=== PATIENT | male | born 1955 | race Caucasian/White ===

== ENCOUNTER 2017-01-09 09:58 | Inpatient (IN) ==
--- NOTE | 2017-01-09 10:30 | EKG Report ---
Test Performed on : 01/09/2017 10:05:12 AM Test Reason : CHEST PAIN Blood Pressure : / mmHG Vent. Rate : 083 BPM Atrial Rate : 083 BPM P-R Int : 162 ms QRS Dur : 106 ms QT Int : 390 ms P-R-T Axes : 017 -33 149 degrees QTc Int : 458 ms Sinus rhythm. with premature atrial complexes. Left axis deviation Septal infarct , age undetermined ST \T\ T wave abnormality, consider lateral ischemia Abnormal ECG No previous ECGs available Unconfirmed Result
[2017-01-09 10:31] LABS: MANUAL DIFF NEEDED? NO
[2017-01-09 10:35] LABS: BASO% 0.9 % (0.0-0.8); EOS# 0.12 X1000 (0.0-0.7); EOS% 2.1 % (0.0-10.0); HEMATOCRIT 38.6 % (42.0-52.0); HEMOGLOBIN 13.9 g/dL (14.0-18.0); LYMPH# 2.01 X1000 (1.2-3.4); LYMPH% 34.7 % (20.5-51.1); MCH 32.3 PG (27-31); MCV 89.6 FL (81-99); MONO# 0.51 X1000 (0.11-0.59); MONO% 8.8 % (1.7-9.3); MPV 11.7 FL (7.4-10.4); NEUT% 53.5 % (42.2-75.2); PLT 171 X1000 (130-400); RBC 4.31 XMIL (4.7-6.1)
--- NOTE | 2017-01-09 10:40 | Diag Imaging Result Doc PS360 ---
EXAM: CHEST-2 VIEWS HISTORY: CP TECHNIQUE: PA and lateral chest COMMENT: There is no evidence of acute cardiac or pulmonary disease. Compared to 09/28/2015 there is been no significant change in the appearance of the chest. IMPRESSION: No acute disease. Electronically signed by Taran Pham 01/09/2017 10:38 AM
[2017-01-09 11:04] LABS: ALBUMIN 3.8 g/dL (3.5-5.0); CALCIUM 8.7 mg/dL (8.8-10.2); MAGNESIUM 1.8 mg/dL (1.5-2.7); POTASSIUM 4.4 mmol/L (3.5-5.1); TOTAL BILIRUBIN 0.37 mg/dL (0.20-1.00); TOTAL PROTEIN 7.2 g/dL (6.3-8.3)
[2017-01-09 11:07] LABS: INR 0.97; PROTIME 10.2 Seconds (9.2-11.7); PTT 26.3 Seconds (22.0-36.0)
--- NOTE | 2017-01-09 11:53 | ED EKG INTERP ---
This chart was entered by Dory Blunt Scribe, acting as scribe for Meg Peña MD. EKG Interpretation - EKG Time of EKG reading by physician:: 10:05 EKG Read and Signed by:: Meg Peña EKG Interpretation (*Must complete 3 of following elements*): Abnormal Rate: 83 Rhythm: sinus rhythm with premature atrial complexes [place]: left (left axis deviation) ST Wave: non-specific ST changes (ST & T wave abnormality, consider lateral ischemia) Comments: septal infarct, age undetermined Attestation - Physician/ STEPHEN Attestation Patient care was provided by Advanced Practice Provider:: Yes Advanced Practice Provider documentation review:: The Mid-level provider documentation, treatment plan and medical decision making was reviewed by the physician who agrees with all treatment and medical decision making by the MLP. The physician spent face to face time with patient:: No Advanced Practice Provider documentation review:: Supervising physician onsite and consulted in the evaluation and care of this patient. The physician did not have a face to face encounter with the patient. This chart was documented by the indicated scribe, (Dory Blunt Scribe) and accurately reflects the services I performed and decisions made by me, Meg Peña MD, as attested by the provider's signature.
--- NOTE | 2017-01-09 12:06 | PROVIDER DOCUMENTATION ---
This chart was entered by Dory Blunt Scribe, acting as scribe for Fátima Mendoza CRNP. HPI-Chest Pain - General Chief Complaint: Chest Pain Stated Complaint: CP Time Seen by Provider: 01/09/17 11:18 Source: patient Allergies/Adverse Reactions: Patient Allergies Allergy/AdvReac Type Severity Reaction Status Date / Time No Known Allergies Allergy Verified 09/28/15 08:11 Home Medications: Home Medication List Medication Instructions Recorded Confirmed Last Taken Type Aspirin [Aspirin EC] 81 mg PO DAILY 08/09/14 01/09/17 01/09/17 08:00 History Lisinopril 40 mg PO DAILY 08/09/14 01/09/17 01/09/17 08:00 History Amlodipine [Norvasc] 10 mg PO QAM 09/28/15 01/09/17 01/09/17 08:00 History Metformin [Glucophage] 1,000 mg PO BID 09/28/15 01/09/17 01/09/17 08:00 History Clopidogrel [Plavix] 75 mg PO DAILY #60 tablet 09/29/15 01/09/17 01/09/17 08:00 Rx Fenofibrate [Tricor] 145 mg PO DAILY #60 tablet 09/29/15 01/09/17 01/08/17 20: 00 Rx ATORVAstatin [Lipitor] 40 mg PO HS 01/09/17 01/09/17 01/08/17 20:00 History - History of Present Illness-CP Nature of Presenting Problem: Patient is a 61 year old male who presents in the ED with complaints of chest pain. Patient states he was at his PCP's office in [place], [place] when he had a sudden sharp/stabbing sensation in his right chest, and states his pain radiated into his right shoulder. He also states he elected to come to the ED via private vehicle, and states he "felt like he had to keep taking deep breaths." He reports he took three 81mg aspirin prior to arrival in ED, and reports he has a history of chest pain and elevated troponins in the ED but has not been evaluated by a nut culler in the past. He also reports he has been told he has aortic valve issues but again has not been evaluated by a nut culler to confirm this. 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 Location: reports: other (right sided) Chest Pain Radiation: reports: shoulders (right) Quality of Pain: reports: sharp, stabbing Severity in ED: mild, moderate Onset/Duration: abrupt, 1-3 hours ago Timing: gone now Context/Activities at Onset: reports: moderate activity (at PCP's office) Modifying Factors: improves with: nothing Associated Symptoms: reports: shortness of breath ("had to take deep breaths") Nitro Today/Relief: no nitro taken today Aspirin Treatment Today: 81 mg x 3, provided at home Prior Chest Pain/Cardiac Workup: reports: other (hx of chest pain/elevated troponins) Similar Symptoms Previously?: Yes Recently Seen Here or By Another Healthcare Provider: No Review of Systems - Adult - REVIEW OF SYSTEMS - ADULT Constitutional: reports: no symptoms reported Eyes: reports: no symptoms reported Ears, Nose, Mouth & Throat: reports: no symptoms reported Cardiovascular: reports: see HPI, chest pain Respiratory: reports: see HPI, shortness of breath ("have to take deep breaths") Gastrointestinal: reports: no symptoms reported Genitourinary: reports: no symptoms reported Musculoskeletal: reports: no symptoms reported Integumentary: reports: no symptoms reported Neurological: reports: no symptoms reported Psychiatric: reports: no symptoms reported Endocrine: reports: no symptoms reported Hematologic/Lymphatic: reports: no symptoms reported Allergic/Immunologic: reports: no symptoms reported All Other Systems: Reviewed and Negative Past History - Adult - PAST MEDICAL HISTORY-ADULT Review of Records: reports: Nursing Assessment Review, Medications Reviewed Major Childhood Illnesses: reports: denies history Cardiovascular: reports: HTN, hyperlipidemia Respiratory: reports: denies history Gastrointestinal: reports: denies history Obstetrical/Gynecological: reports: denies history Genitourinary: reports: denies history Musculoskeletal: reports: denies history Neurological: reports: CVA (x2 with mild residual left sided weakness) Psychiatric: reports: denies history Endocrine/Immune: reports: denies history, Diabetes Other Conditions: reports: denies history - PRIOR SURGERIES/PROCEDURES Surgical/Procedure History: reports: none - IMMUNIZATION STATUS Childhood Immunizations: See Nurse Assessment Flu Vaccine: See Nurse Assessment - FAMILY HISTORY Family History: reviewed, not pertinent - SOCIAL HISTORY Smoking: denies, non-smoker Substance Use: none/never Alcohol Use Frequency: never Living Situation: family Physical Exam-General - PHYSICAL EXAM-ADULT Initial Vital Signs Reviewed: Yes - CONSTITUTIONAL General Appearance: alert, no apparent distress - EYES Eyes: PERRL/EOMI, pink conjunctivae - HEAD, EARS, NOSE, MOUTH & THROAT HENMT: normocephalic/atraumatic, moist mucous membranes - NECK Neck: full range of motion, supple - RESPIRATORY Respiratory: chest non-tender, lungs clear, normal breath sounds, no pleuratic chest pain, no respiratory distress, no accessory muscle use - CARDIOVASCULAR Cardiovascular: normal peripheral pulses, regular rate, rhythm, no edema, no gallop, no JVD, gallop/S3 (prominent) - GASTROINTESTINAL (ABDOMEN) Abdominal Exam: non tender, soft, no organomegaly, no pulsatile mass - LYMPHATIC Lymphatic: no adenopathy - MUSCULOSKELETAL Back Exam: normal inspection, no CVA tenderness, no vertebral tenderness Extremity: normal range of motion, non-tender, normal gait, normal inspection, no pedal edema, no calf tenderness, normal capillary refill, pelvis stable - SKIN Integumentary: normal color, normal turgor, warm/dry - NEUROLOGIC Neurologic: grossly normal, no motor/sensory deficits - PSYCHIATRIC Psych/Mental Status: normal mood/affect, oriented x 3 Progress - PLAN OF CARE/RESULTS Progress/Plan/Lab Results: Vital Signs - 8 hr 01/09/17 10:01 Temperature 98.3 F Pulse Rate 80 Respiratory Rate 18 Blood Pressure 168/73 O2 Sat by Pulse Oximetry 97 Laboratory Results - last 24 hr 01/09/17 01/09/17 01/09/17 10:12 10:12 10:12 WBC 5.80 RBC 4.31 L Hgb 13.9 L Hct 38.6 L MCV 89.6 MCH 32.3 H MCHC 36.0 RDW Std Deviation 12.5 Plt Count 171 MPV 11.7 H Immature Gran % (Auto) 0.0 Neut % (Auto) 53.5 Lymph % (Auto) 34.7 [place] % (Auto) 8.8 Eos % (Auto) 2.1 Baso % (Auto) 0.9 H Immature Gran # (Auto) 0.00 Neut # (Auto) 3.11 Lymph # (Auto) 2.01 [place] # (Auto) 0.51 Eos # (Auto) 0.12 Baso # (Auto) 0.05 PT INR PTT (Actin FS) D-Dimer 0.24 Sodium 131 L Potassium 4.4 Chloride 96 L Carbon Dioxide 22 L Anion Gap 13 BUN 27 H Creatinine 1.8 H Estimated GFR/1.73 m2 38 BUN/Creatinine Ratio 15 Glucose 197 H Calculated Osmolality 273 Calcium 8.7 L Magnesium 1.8 Total Bilirubin 0.37 AST 28 ALT 43 Alkaline Phosphatase 72 Creatine Kinase 135 Troponin T Pjx-C-Rwsimcleppv Pept Total Protein 7.2 Albumin 3.8 Globulin 3.4 Albumin/Globulin Ratio 1.1 01/09/17 01/09/17 01/09/17 10:12 10:12 10:12 WBC RBC Hgb Hct MCV MCH MCHC RDW Std Deviation Plt Count MPV Immature Gran % (Auto) Neut % (Auto) Lymph % (Auto) [place] % (Auto) Eos % (Auto) Baso % (Auto) Immature Gran # (Auto) Neut # (Auto) Lymph # (Auto) [place] # (Auto) Eos # (Auto) Baso # (Auto) PT 10.2 INR 0.97 PTT (Actin FS) 26.3 D-Dimer Sodium Potassium Chloride Carbon Dioxide Anion Gap BUN Creatinine Estimated GFR/1.73 m2 BUN/Creatinine Ratio Glucose Calculated Osmolality Calcium Magnesium Total Bilirubin AST ALT Alkaline Phosphatase Creatine Kinase Troponin T 0.038 Nny-M-Vtzzjyrkoxw Pept 210 H Total Protein Albumin Globulin Albumin/Globulin Ratio 01/09/17 01/09/17 12:51 12:51 WBC RBC Hgb Hct MCV MCH MCHC RDW Std Deviation Plt Count MPV Immature Gran % (Auto) Neut % (Auto) Lymph % (Auto) [place] % (Auto) Eos % (Auto) Baso % (Auto) Immature Gran # (Auto) Neut # (Auto) Lymph # (Auto) [place] # (Auto) Eos # (Auto) Baso # (Auto) PT INR PTT (Actin FS) D-Dimer Sodium Potassium Chloride Carbon Dioxide Anion Gap BUN Creatinine Estimated GFR/1.73 m2 BUN/Creatinine Ratio Glucose Calculated Osmolality Calcium Magnesium Total Bilirubin AST ALT Alkaline Phosphatase Creatine Kinase 132 Troponin T 0.032 Jzh-U-Nfypramwini Pept Total Protein Albumin Globulin Albumin/Globulin Ratio Orders Category Date Time Status CHEST-2 VIEWS [RAD] Stat Exams 01/09/17 10:07 Completed CBC WITH ELECTRONIC DIFF [HEME] Stat Lab 01/09/17 10:12 Completed CK PROFILE [SP CHEM] Stat Lab 01/09/17 10:12 Completed CK PROFILE [SP CHEM] Stat Lab 01/09/17 12:51 Completed COMPREHENSIVE METABOLIC PANEL [CHEM] Stat Lab 01/09/17 10:12 Completed D-DIMER [CHEM] Stat Lab 01/09/17 10:12 Completed MAGNESIUM [CHEM] Stat Lab 01/09/17 10:12 Completed PRO B-NATRIURETIC PEPTIDE Stat Lab 01/09/17 10:12 Completed PROTIME WITH INR [COAG] Stat Lab 01/09/17 10:12 Completed PTT [COAG] Stat Lab 01/09/17 10:12 Completed TROPONIN T Stat Lab 01/09/17 10:12 Completed TROPONIN T Stat Lab 01/09/17 12:51 Completed 0.9% Sodium Chloride Inj [Ns] 1,000 ml Med 01/09/17 13:39 Discontinued IV 999 mls/hr Nitroglycerin Med 01/09/17 12:25 Discontinued 1 inch TOP NOW ONE EKG [EKG] Stat Ther 01/09/17 10:07 Draft EKG [EKG] Stat Ther 01/09/17 12:30 Ordered Discussed the patient with Dr. Peña and she went to evaluate the patient. Discussed results and plan of care with patient. Patient agrees with plan and verbalizes understanding. Result Diagrams: 01/09/17 10:12 01/09/17 10:12 - REASSESSMENT Reassessment #1 Time Reassessed: 14:57 Status: improving (Pt. reports some improvement but reports some fluttering that takes his breath) - XRAY 1 XRAY Study: Chest Impression: Normal - CONSULTS/PCP/HOSPITALIST Notification #1 *Consult/PCP/Hospitalist*: Dr. Mckoy Time Discussed: 14:59 Reason/Comments: Admission Consult Disposition: Admit Departure - Departure Date of Disposition Decision: 01/09/17 Time of Disposition Decision: 14:55 DIAGNOSIS: Chest pain Qualifiers: Chest pain type: unspecified Qualified Code(s): R07.9 - Chest pain, unspecified Disposition: ADMITTED INPATIENT 09 Certified Medical Emergency: Emergent Condition: Stable Referrals and Follow-Ups: Michelle Sharma MD [Primary Care Provider] - - Critical Care Note This patient required my direct & personal management of CC.: No Attestation - Physician/ STEPHEN Attestation Patient care was provided by Advanced Practice Provider:: Yes Advanced Practice Provider:: Reji,J. Carlo (The physician is on site and did have face to face contact with the patient. ) Advanced Practice Provider documentation review:: The Mid-level provider documentation, treatment plan and medical decision making was reviewed by the physician who agrees with all treatment and medical decision making by the MLP. The physician spent face to face time with patient:: Yes Advanced Practice Provider documentation review:: Supervising physician onsite and consulted in the evaluation and care of this patient. The physician did have a face to face encounter with the patient. This chart was documented by the indicated scribe, (Dory Blunt Scribe) and accurately reflects the services I performed and decisions made by me, Fátima Mendoza CRNP, as attested by the provider's signature.
[2017-01-09] MEDS ORDERED: NITROGLYCERIN TOP ONE (12:25)
[2017-01-09] MEDS ORDERED: NS 1,000 ML IV ONE (13:39)
[2017-01-09] MEDS ORDERED: ZOFRAN IV PRN (17:59)
[2017-01-09] MEDS: LOVENOX SUBQ SCH (18:39)
[2017-01-09] MEDS: HUMALOG SUBQ SCH (20:44)
[2017-01-09] MEDS ORDERED: LIPITOR PO SCH (21:00)
--- NOTE | 2017-01-09 23:41 | HISTORY AND PHYSICAL ---
PRIMARY CARE PHYSICIAN: Dr. Michelle Sharma. CHIEF COMPLAINT: Chest pain. HISTORY OF PRESENT ILLNESS: Mr. Mcallister is a 61-year-old male with a history of CVA x2, hyperlipidemia, diabetes mellitus, hypertension who presents to the ER with 2-3 days of chest discomfort. The patient's symptoms began a day or two ago. He started having some chest discomfort, began a few weeks back. He has been having fairly progressively worsening chest pain, which peaked yesterday. He described a midsternal, almost right-sided chest pain that did radiate up to the shoulder. It only lasted a few minutes and occurred at rest. He woke up this morning fairly short of breath, went to Dr. Michelle Sharma's office and was found to have profound hypertension and abnormal EKG. The patient was sent here immediately. Laboratories and diagnostics were done. Laboratories showed negative troponin x2 sets, negative proBNP but he does have a creatinine of 1.8, a glucose of 197 and some anemia. Chest x-ray did not show anything acute. EKG does show sinus rhythm with sinus arrhythmia, inferior infarct and abnormal ST segments in the inferior and lateral leads. This is not significantly different from EKG done in 2016. At any rate he has had nitroglycerin and aspirin and his blood pressure has come down a little bit, but he is going to be admitted for further treatment and evaluation. PAST MEDICAL HISTORY: 1. CVA x2. 2. Hypertension. 3. Hyperlipidemia. 4. Diabetes mellitus. 5. Peptic ulcer disease. 6. Sleep apnea. 7. Obesity. 8. CKD 3. SURGICAL HISTORY: None. SOCIAL HISTORY: Patient denies tobacco, alcohol or drug use. His is at the bedside. FAMILY HISTORY: Noncontributory. REVIEW OF SYSTEMS: Fourteen-point review of systems obtained and found to be negative with the exception of the HPI. ALLERGIES: None. HOME MEDICATIONS: Norvasc 10 mg a.m. Aspirin 81 mg daily. Lipitor 40 mg at bedtime. Plavix 75 mg daily. Tricor 145 mg p.o. daily. Lisinopril 40 mg daily. Glucophage 1000 mg b.i.d. PHYSICAL EXAMINATION: VITAL SIGNS: Blood pressure is 160/92, heart rate 84, respiratory rate is 17, O2 saturation 94% on room air. Temperature is 98.2 degrees. GENERAL: Chronically ill-appearing 61-year-old male, lying in hospital bed in no acute distress. NEUROLOGIC: The patient is awake and alert. He is slightly confused, but follows commands appropriately. No focal deficits noted. HEENT: Head is atraumatic, normocephalic. His pupils are equal, round, and reactive to light. Oral mucosa is dry. Trachea is midline. No JVD. CHEST: Clear to auscultation bilaterally. CARDIOVASCULAR: Irregular. S1 S2 is noted. GI: Soft, nondistended, nontender. Bowel sounds positive. EXTREMITIES: Trace to 1+ edema bilaterally. Pulses palpable, but diminished. DIAGNOSTIC DATA: EKG: Sinus rhythm with a sinus arrhythmia. Nonspecific ST and T changes in the inferior and lateral leads and inferior Q-waves. Chest x-ray is negative. Laboratory data: WBC 5.8, hemoglobin 13.9, hematocrit 38.6, platelet count 171,000. INR 0.97. Sodium 131, potassium 4.4, chloride 96, CO2 22, anion gap 13, BUN 27, creatinine 1.8, glucose 197, calcium 8.7. Liver function tests: Creatine kinase, troponin negative. ProBNP 210. Albumin 3.8. ASSESSMENT AND PLAN: 1. Chest pain: Atypical in nature. However, given his risk factors. We are going to need to admit him for at least overnight observation and have Cardiology evaluate the patient. We will continue to trend his enzymes, add an echocardiogram and continue all of his home medications which do include aspirin and Plavix. We will monitor telemetry and follow closely. 2. Chronic kidney disease: Creatinine at baseline. We will continue to monitor. 3. Diabetes mellitus: Add pattern sugars. Hold his metformin. Add sliding scale insulin. Check hemoglobin A1c in the morning. 4. Hyperlipidemia: Chronic and stable, continue his home medications. 5. Hyponatremia: Clinically the patient is slightly volume overloaded. We are going to check an echocardiogram and evaluate his left ventricular function. We will recheck a sodium in the morning. 6. Anemia: Mild. We will check iron studies in the morning. Likely chronic disease related. 7. Deep vein thrombosis prophylaxis will be provided with Lovenox. Further recommendations to follow. Dictated by FAUZIA Valente for Troy Sharp MD Patient seen and examined by me face to face, all the lab work, vitals signs, and images were reviewed, patient has a history of CVA, she looks stable on my physical exam, no SOB, atypical chest pain, pending cardiology evaluation, I agree with the assessment and plan, Troy Mckoy MD cc: FAUZIA Valente MD [facility], [facility]
[2017-01-10] MEDS: HUMALOG SUBQ SCH ×3 (06:06→16:52)
[2017-01-10] MEDS: LOVENOX SUBQ SCH (06:13)
[2017-01-10 06:44] LABS: HEMATOCRIT 38.1 % (42.0-52.0); HEMOGLOBIN 13.7 g/dL (14.0-18.0); MCH 33.3 PG (27-31); MCV 92.7 FL (81-99); MPV 11.5 FL (7.4-10.4); RBC 4.11 XMIL (4.7-6.1)
[2017-01-10 07:03] LABS: HEMOGLOBIN A1C 7.5 % (4.8-6.0)
[2017-01-10 07:12] LABS: AGAP 15; BUN 22 mg/dL (8-22); CALCIUM 9.1 mg/dL (8.8-10.2); CHLORIDE 98 mmol/L (98-107); COSMO 276; POTASSIUM 4.1 mmol/L (3.5-5.1); SODIUM 135 mmol/L (136-145); TCO2 22 mmol/L (25-35)
[2017-01-10 07:25] LABS: HDL 32 mg/dL (35-55); TRIGLYCERIDES 1398 mg/dL (39-160)
[2017-01-10] MEDS ORDERED: ASPIRIN EC PO SCH (09:00)
[2017-01-10] MEDS ORDERED: TRICOR PO SCH (09:00)
[2017-01-10] MEDS ORDERED: PRINIVIL PO SCH (09:00)
[2017-01-10] MEDS ORDERED: NORVASC PO SCH (09:00)
[2017-01-10] MEDS ORDERED: PLAVIX PO SCH (09:00)
[2017-01-10] MEDS ORDERED: ASPIRIN PO SCH (09:00)
--- NOTE | 2017-01-10 14:02 | CONSULTATION ---
DATE OF CONSULTATION: 01/09/2017 INDICATION: Chest pain. HISTORY OF PRESENT ILLNESS: Mr. Mcallister is a 61-year-old, white male with a history of CVA, hypertension, hyperlipidemia and diabetes. He [facility] He presented for evaluation of chest discomfort that apparently has been ongoing without change in pattern for the last 8 years. He presented to Michelle Sharma's office and was referred to the hospital on the . She was worried about some EKG changes that he apparently had on his current EKG and sent him to the hospital for further evaluation. He reports the discomfort as a stabbing like pain that lasts for about 3-4 minutes. These episodes are not exertional in nature. There has not been an increase in the pattern nor a change in the length or severity of the pain. He has no associated symptoms with the pain and cannot think of any provokers or palliators. He has no history of cardiac disease that he is aware of. He does have a history of stroke as well as diabetes. PHYSICAL EXAMINATION: Vital signs: He is afebrile. Heart rates in the 50s to 80s. Blood pressure 154/73. General: He is in no acute distress. HEENT: Oropharynx is moist. Normal dentition. Eye examination is pink conjunctivae, white sclerae. Neck: Examination shows no obvious thyromegaly or thyroid tenderness. Cardiovascular: He sounds to be in a regular rate and rhythm. He has no obvious murmurs. He has no S3, no lower extremity edema, no carotid bruits. Chest: His chest exam is clear bilaterally. No increased work of breathing. Abdomen: Soft, nontender, nondistended. No obvious organomegaly. Skin: Warm and dry throughout without any rashes. Neurological: He is moving all extremities well. Cranial nerves 2-12 are intact without any sensation deficits. Psychiatric: Alert, oriented, pleasant. He has normal mood and affect. PERTINENT DATA: His EKG on presentation shows sinus rhythm. There are occasional PACs noted. Some mild T-wave inversions noted in lead V6 as well as lead II and aVL. He has an old EKG from September 2015. This appears unchanged since then. Chest x-ray is unremarkable. His laboratory data shows normal cardiac enzymes and negative proBNP. His triglycerides were 1398. Thus, his LDL could not be calculated. His sodium is 135, potassium is 4.1. His BUN is 22, creatinine is 1.8. His white count is 9.3, hematocrit 38.1. ASSESSMENT: Mr. Mcallister is a 61-year-old white male with a history of CVA and diabetes who presented for evaluation of chest discomfort that has been ongoing and unchanged in pattern for 8 years. PLAN: We are awaiting his echocardiogram as well as a resting nuclear scan. If his nuclear scan is unremarkable, then likely he can be discharged with followup with the stress portion on Friday. Otherwise we may need to reconsider the evaluation. Currently I would continue him on his current medications in the form of aspirin and atorvastatin. Further recommendations to follow. cc: Jordan Fontana MD
--- NOTE | 2017-01-10 15:05 | EKG Report ---
Test Performed on : 01/10/2017 2:24:27 PM Test Reason : chest pain Blood Pressure : / mmHG Vent. Rate : 080 BPM Atrial Rate : 080 BPM P-R Int : 154 ms QRS Dur : 112 ms QT Int : 388 ms P-R-T Axes : -06 -38 121 degrees QTc Int : 447 ms Sinus rhythm. with premature atrial complexes. Left axis deviation Incomplete left bundle branch block ST \T\ T wave abnormality, consider lateral ischemia Abnormal ECG When compared with ECG of 09-JAN-2017 10:05, Nonspecific T wave abnormality no longer evident in Inferior leads Confirmed by Collins Justin MD ([id number]) on 01/12/2017 1:25:52 PM
[2017-01-10 16:40] VITALS: BP 148/86
--- NOTE | 2017-01-11 12:40 | ECHO REPORT ---
ORDER DATE: 01/09/2017 MEASUREMENTS: Left ventricular end-diastolic diameter 5.5 and systolic diameter 3.5, septal thickness 1.2, posterior wall thickness 1.2, left atrium 4.4, aortic root 3.3. SUMMARY: 1. Technically difficult study. 2. Moderate aortic valve sclerosis involving primarily left coronary cusp leaflet tip. Aortic valve opening is adequate with peak gradient less than 10 mmHg. There is trace aortic regurgitation. Mitral and tricuspid valves are without structural abnormality. Pulmonic valve is without structural abnormality. There is trace mitral regurgitation, trace tricuspid regurgitation, and trace pulmonic insufficiency. The aortic root is normal in size. 3. Normal left ventricular chamber size with mild concentric left hypertrophy is demonstrated. Estimated left ventricular ejection fraction appears to be at least 65%. No regional wall motion abnormalities are evident. Doppler suggests grade 1 left ventricular diastolic dysfunction. Left atrium is mildly enlarged. Right atrium and right ventricle are normal in size with normal right ventricular systolic function. 4. No pericardial effusion. 5. Appearance of inferior vena cava suggests normal central venous pressure. cc: MD Herve Jones CRNP
--- NOTE | 2017-01-11 18:26 | DISCHARGE SUMMARY ---
ADMISSION DATE: 01/09/2017 DISCHARGE DATE: 01/10/2017 DISCHARGE DIAGNOSES: 1. Chest pain, acute coronary syndrome has been ruled out. 2. Chronic kidney disease. 3. Diabetes mellitus. 4. Hyperlipidemia. 5. Hyponatremia. 6. Anemia. CONSULTS: Cardiology Department Dr. Jordan Fontana. HOSPITAL COURSE: 61-year-old male with a past medical history of CVA x2, hyperlipidemia, diabetes, hypertension came to the emergency department and was admitted yesterday 01/09/2017, apparently for the past 3-4 days he has been having chest discomfort. The patient's symptoms began a day or 2 prior to the admission that has been getting worse. He describes it a midsternal chest pain that radiated to the right shoulder. It has been on and off and lasts for at least 1 minute. Also he has been complaining of shortness of breath and he went to Dr. Michelle Sharma office and was found to have hypertension and abnormal EKG so this patient was sent immediately to the emergency department for evaluation. Troponins were negative. Negative proBNP. Creatinine 1.8 and glucose 197 with some anemia. Chest x-ray did not show anything acute. EKG showed a sinus rhythm with sinus arrhythmia. Inferior infarct and abnormal ST-segment in the inferior and lateral leads but this is not significantly different from EKG done in 2016. This patient was admitted and Cardiology Department evaluated this patient. He had a resting nuclear medicine study that did not show any abnormality and this patient today is not complaining of chest pain or shortness of breath, laboratory is stable so we decided to discharge this patient with an active follow up by his primary care physician in 1 week. Also he will get the 2nd portion of his cardiac status next Friday, he will have a nuclear stress test done at 7:30. At the moment of discharge this patient was on a stable medical condition, tolerating p.o. and ambulating. PHYSICAL EXAM: Vital Signs: Temperature 98.5 degrees, pulse 57, respiratory rate 20, blood pressure 154/73, oxygen saturation 96 on room air. HEENT: Head normocephalic. No trauma. PERRLA. Neck: Supple. No JVD. No masses. Central trachea. Chest: Clear to auscultation. No wheezing. No rales. Abdomen: Soft, nontender, nondistended. No hepatosplenomegaly. Extremities: No edema. No clubbing. No cyanosis. Neurologic: The patient is alert and oriented x3. No focal neurological deficits. LABORATORY: WBC 9.3, hemoglobin 13.7, hematocrit 38.1, platelet 175,000, sodium 135, potassium 4.1, chloride 98, bicarbonate 22, BUN 22, creatinine 1.8, glucose 145, calcium 9.1. DISCHARGE MEDICATIONS: This patient will be discharged with gabapentin 125 mg p.o. b.i.d., metformin 500 mg p.o. b.i.d., pantoprazole 20 mg p.o. daily, lisinopril 40 mg p.o. daily, fenofibrate 145 mg p.o. daily, Plavix 75 mg p.o. daily, aspirin 81 mg p.o. daily, amlodipine 10 mg p.o. q.a.m., atorvastatin 40 mg p.o. at bedtime. TIME DISCHARGING THIS PATIENT: 35 minutes . cc: Troy Sharp MD
== END 2017-01-10 17:01 | disposition home or self-care (01) ==
LOC: ED 09:58 → 3N 17:19 → INTOOBSV 17:19 → OBSVTOIN 17:19
PROVIDERS: ATTEND Internal Medicine